=== PATIENT | male | born 1980 | race Asian ===

== ENCOUNTER 2022-07-15 19:02 | Emergency (ER) | payer OTHER ==
[~2022-07-15] VITALS: Ht 180.3 cm; Wt 113.4 kg
[2022-07-15 19:10] VITALS: BP 124/74; TEMP 98.3
[2022-07-15 19:45] LABS: PLATELET COUNT 169 K/uL (142-355)
[2022-07-15 19:54] LABS: POTASSIUM 3.9 mmol/L (3.6-5.2)
== END 2022-07-15 21:20 | disposition home or self-care (01) ==
LOC: ED 19:02
PROVIDERS: Family Medicine
DX: F10.129 Alcohol abuse with intoxication, unspecified (principal); Y90.6 Blood alcohol level of 120-199 mg/100 ml; N20.0 Calculus of kidney
CPT/HCPCS: 36415; 80053; 80307; 80320; 81000; 82150; 83690; 85027; 87502; 96374; 99284; J2405